=== PATIENT | female | born 1995 | race African-American/Black ===

== ENCOUNTER 2017-04-14 12:11 | Inpatient (IN) ==
[2017-04-14] MEDS ORDERED: KEFZOL 1 GM/D5W 1 GM/50 ML IVPB IV PRN (12:19)
[2017-04-14] MEDS ORDERED: REGLAN PO ONE (12:19)
[2017-04-14] MEDS ORDERED: PEPCID PO ONE (12:19)
[2017-04-14] MEDS ORDERED: LR 1,000 ML IV SCH ×2 (12:19→16:26)
[2017-04-14] MEDS ORDERED: PEPCID IV ONE (12:45)
[2017-04-14] MEDS ORDERED: BICITRA PO ONE (12:45)
[2017-04-14 13:21] LABS: URINE SOURCE VOIDED
[2017-04-14 13:21] LABS: MANUAL DIFF NEEDED? NO
[2017-04-14 13:25] LABS: BASO% 0.1 % (0.0-0.8); EOS# 0.03 X1000 (0.0-0.7); EOS% 0.4 % (0.0-10.0); HEMATOCRIT 36.2 % (37.0-47.0); HEMOGLOBIN 12.6 g/dL (12.0-16.0); IMM GRAN# 0.02 X1000 (0.0-0.04); IMM GRAN% 0.3 % (0.0-0.5); LYMPH# 1.56 X1000 (1.2-3.4); LYMPH% 21.3 % (20.5-51.1); MCH 31.3 PG (27-31); MCHC 34.8 g/dL (33-37); MONO# 0.56 X1000 (0.11-0.59); MONO% 7.6 % (1.7-9.3); MPV 11.1 FL (7.4-10.4); NEUT% 70.3 % (42.2-75.2); PLT 201 X1000 (130-400); RBC 4.02 XMIL (4.2-5.4)
[2017-04-14] MEDS ORDERED: DURAMORPH ONE (13:25)
[2017-04-14] MEDS ORDERED: PITOCIN 20 UNITS/LR 20 UNITS/1,000 ML IV.SOLN ONE (13:25)
[2017-04-14] MEDS ORDERED: ZOFRAN ONE (13:25)
[2017-04-14] MEDS ORDERED: PITOCIN ONE (13:25)
[2017-04-14 13:31] LABS: BILIRUBIN URINE NEGATIVE (NEGATIVE); BLOOD URINE 4+ (NEGATIVE); CLARITY SL. CLOUDY (CLEAR); COLOR YELLOW; GLUCOSE URINE NEGATIVE (NEGATIVE); LEUKOCYTES URINE 2+ (NEGATIVE); NITRITE URINE NEGATIVE (NEGATIVE); PROTEIN URINE TRACE mg/dL (NEGATIVE); SP GRAVITY URINE 1.025; UROBILINOGEN URINE NORMAL
[2017-04-14 13:37] LABS: UR AMPHETAMINES QUAL NONE DETECTED (NONE DETECT); UR BARBITUATES QUAL NONE DETECTED (NONE DETECT); UR BENZODIAZEPIN QUAL NONE DETECTED (NONE DETECT); UR CANNABINOIDS QUAL NONE DETECTED (NONE DETECT); UR COCAINE QUAL NONE DETECTED (NONE DETECT); UR MDMA QUAL NONE DETECTED (NONE DETECT); UR METHADONE QUAL NONE DETECTED (NONE DETECT); UR METHAMPHETAMINE QUAL NONE DETECTED (NONE DETECT); UR OPIATES QUAL NONE DETECTED (NONE DETECT); UR OXYCODONE QUAL NONE DETECTED (NONE DETECT); UR PCP QUAL NONE DETECTED (NONE DETECT); UR TCA QUAL NONE DETECTED (NONE DETECT)
[2017-04-14] MEDS ORDERED: PITOCIN IM PRN (13:51)
[2017-04-14] MEDS ORDERED: CYTOTEC PO PRN (13:51)
[2017-04-14] MEDS ORDERED: BOOSTRIX VACCINE IM ONE (13:51)
[2017-04-14] MEDS ORDERED: HYDROXYZINE IM PRN (13:51)
[2017-04-14] MEDS ORDERED: AMBIEN PO PRN (13:51)
[2017-04-14] MEDS ORDERED: DEMEROL IM PRN (13:51)
[2017-04-14] MEDS ORDERED: DEMEROL PO PRN ×2 (13:51)
[2017-04-14] MEDS ORDERED: M-M-R II VACCINE SUBQ ONE (13:51)
[2017-04-14] MEDS ORDERED: DULCOLAX PR PRN (13:51)
[2017-04-14] MEDS ORDERED: PITOCIN 20 UNITS/LR 20 UNITS/1,000 ML IV.SOLN IV ONE (13:51)
[2017-04-14] MEDS ORDERED: PHENERGAN IM PRN (13:51)
[2017-04-14] MEDS ORDERED: DIPRIVAN 1% ONE (14:04)
--- NOTE | 2017-04-14 14:15 | HISTORY AND PHYSICAL ---
HISTORY OF PRESENT ILLNESS: The patient is a 22-year-old black female, 3, para 2-0-0-2, who is admitted at this time for repeat section delivery. She comes in the office having some contractions. Initially, she was 1 cm several days ago. Now she is 3 or 4 and 10. She is therefore admitted to have a repeat section delivery for labor and previous section x2. She denies any other difficulties. PAST MEDICAL HISTORY: Depression. MEDICINES: vitamins. ALLERGIES: Latex. PHYSICAL EXAMINATION: GENERAL: This is a well-developed female. HEENT: Benign. NECK: Supple. LUNGS: Clear. CARDIOVASCULAR: Regular rate and rhythm. ABDOMEN: Soft, nontender. EXTREMITIES: Without clubbing, cyanosis, or edema. ASSESSMENT AND PLAN: This is a 22-year-old with term intrauterine and previous section, in labor. Admitted at this time for repeat section for delivery. cc: Channing Bustos MD
--- NOTE | 2017-04-14 15:04 | OPERATIVE NOTE ---
PROCEDURE DATE: 04/14/2017 PREOPERATIVE DIAGNOSIS: Term intrauterine , previous section, in labor. POSTOPERATIVE DIAGNOSIS: Term intrauterine , previous section, in labor. PROCEDURE: Repeat low transverse section. ANESTHESIA: Failed spinal and general anesthesia. FINDINGS: Patient had a female born that weighed 6 pounds. Apgars were 9 and 10. DESCRIPTION OF OPERATION: The patient was taken to the operating room. She had several attempts of spinal anesthesia, but difficulty due to patient compliance with this. Therefore, she was prepped and draped in a sterile fashion, and a Hurt catheter was inserted in the bladder. She underwent general anesthesia, and after intubation we made a Pfannenstiel skin incision, and sharply dissected down to the fascia. The fascia was dissected off the rectus muscle. The peritoneum was entered into and dissected down to create the bladder flap. Low transverse incision made. Clear fluid was noted upon entering the amniotic sac. The was delivered using fundal pressure. Cord blood was obtained. Placenta was removed. She was given IV Pitocin. It was externalized cleaned with clean lap. Incision was closed with #1 chromic in interlocking fashion single-layer closure. Good hemostasis was noted throughout after all pedicles were inspected in the incision. The rectus muscle was closed with 0 chromic suture. Hemostasis maintained with Bovie. Fascia closed with #1 Vicryl. The 3-0 Vicryl was used subcuticularly and incision was closed with a 4-0 Biosyn. Estimated blood loss 500 mL. Mother and doing well. cc: Channing Bustos MD
[2017-04-14] MEDS ORDERED: DILAUDID IV PRN (15:15)
[2017-04-14] MEDS ORDERED: ZOFRAN IV PRN ×2 (15:16→16:26)
[2017-04-14] MEDS ORDERED: PHENERGAN IV PRN ×2 (15:17→16:26)
[2017-04-14] MEDS ORDERED: SODIUM CHLORIDE 0.9% INJ PRN ×2 (15:17→16:26)
[2017-04-14] MEDS ORDERED: DILAUDID PCA VIAL IV PRN (16:26)
[2017-04-14] MEDS ORDERED: BENADRYL IV PRN (16:26)
[2017-04-14] MEDS ORDERED: NARCAN IV PRN (16:26)
[2017-04-14] MEDS: MYLICON PO SCH ×2 (18:59→20:59)
[2017-04-14] MEDS: PITOCIN 10 UNITS/LR 10 UNIT/1,000 ML IV.SOLN IV SCH (20:57)
[2017-04-14] MEDS: PERICOLACE PO SCH (20:59)
[2017-04-14] MEDS: TORADOL IV SCH (21:17)
[2017-04-14] MEDS: HYDROXYZINE PO PRN (23:04)
[2017-04-15] MEDS: TORADOL IV SCH ×3 (03:18→19:16)
[2017-04-15] MEDS: PERICOLACE PO SCH ×2 (03:48→21:40)
[2017-04-15] MEDS: HYDROXYZINE PO PRN ×2 (03:49→08:05)
[2017-04-15] MEDS: PITOCIN 10 UNITS/LR 10 UNIT/1,000 ML IV.SOLN IV SCH (04:59)
[2017-04-15 06:14] LABS: HEMATOCRIT 28.3 % (37.0-47.0); HEMOGLOBIN 9.4 g/dL (12.0-16.0); MCH 30.3 PG (27-31); MCHC 33.2 g/dL (33-37); MCV 91.3 FL (81-99); MPV 11.1 FL (7.4-10.4); RBC 3.1 XMIL (4.2-5.4)
--- NOTE | 2017-04-15 08:48 | PROGRESS NOTE ---
DATE: 04/15/2017 SUBJECTIVE: She is postop day 1. Procedure done: Repeat delivery. She is without complaints. She is sitting up in bed. As stated, she has been up moving around. Her catheter is out, and she is ready to eat. OBJECTIVE: Vital Signs: Temperature 99.2 degrees, pulse 94, respirations 16, blood pressure 114/56. Neck is supple. Lungs clear. Heart: Regular sinus rhythm. Abdomen is distended. Incision is dry and intact. +2 lower extremity edema. Post delivery hemoglobin and hematocrit is 9.4/28.3. ASSESSMENT: Postop day 1. PLAN: Routine and postop care. Expect discharge in the morning. cc: MD Channing Anaya MD
[2017-04-15] MEDS: MYLICON PO SCH ×4 (11:06→21:40)
[2017-04-15] MEDS: PERCOCET-10 PO PRN ×3 (13:28→21:40)
[2017-04-15] MEDS ORDERED: LR 1,000 ML IV SCH (13:51)
[2017-04-15] MEDS: MOTRIN PO PRN (17:38)
[2017-04-16] MEDS: MYLICON PO PRN ×2 (01:01→05:17)
[2017-04-16] MEDS: PERCOCET-10 PO PRN ×3 (01:01→09:05)
[2017-04-16] MEDS: MOTRIN PO PRN ×2 (01:01→09:05)
[2017-04-16] MEDS: MYLICON PO SCH (07:59)
[2017-04-16 08:29] VITALS: BP 123/68
[2017-04-16] MEDS ORDERED: PNEUMOVAX 23 IM ONE (11:00)
--- NOTE | 2017-04-16 15:17 | DISCHARGE SUMMARY ---
ADMISSION DATE: 04/14/2017 DISCHARGE DATE: 04/16/2017 ADMITTING DIAGNOSES: 1. Term . 2. Previous section. 3. Active labor. DISCHARGE DIAGNOSIS: Term , delivered via repeat delivery. CONDITION: Stable. DIET: As tolerated. ACTIVITY: Routine and postoperative instructions. MEDICATIONS: She is to continue vitamins with iron. I have prescribed stool softeners to take every night. To have Motrin 800 to use every 8 hours as needed for cramping and Percocet 10 for operative pain. FOLLOWUP: She is to follow up in 2 weeks if she goes through the weekend okay; however, if she has any problems this weekend, she has been instructed to call and get in next week. HOSPITAL COURSE: Please refer to Ms. Irving's records, H and P, and operative note. She was admitted at term in labor and underwent a repeat delivery, and afterwards she has done well. Currently, she is postoperative day 2, ambulating, tolerating p.o., voiding, and desiring discharge. PHYSICAL EXAMINATION: Vital Signs: Her vital signs are stable. She is afebrile. Lungs: Clear. Heart: Regular sinus rhythm. Abdomen: Distended. Uterus is firm. Incision is dry and intact. LABORATORY DATA: Hemoglobin 9.4. DISPOSITION: We will discharge with the above instructions. cc: MD Channing nAaya MD
== END 2017-04-16 12:20 | disposition home or self-care (01) ==
LOC: P.LD 12:11
PROVIDERS: ADMIT Obstetrics & Gynecology; ATTEND Obstetrics & Gynecology